=== PATIENT | female | born 1955 | race Caucasian/White ===

== ENCOUNTER 2017-02-20 13:05 | Inpatient (IN) | payer OTHER, MEDICARE ==
[2017-02-20] MEDS ORDERED: Morphine 4 MG/ML VIAL ONE (14:00)
[2017-02-20] MEDS ORDERED: Ondansetron HCl/PF 4 MG/2 ML Vial ONE (14:00)
[2017-02-20 14:35] LABS: #Eosinphils 0.1 thou/uL (0.0-0.7); #Lymphocytes 1.1 thou/uL (1.20-3.40); #Monocytes 0.3 thou/uL (0.11-0.59); #Neutrophils 0.8 thou/uL (1.40-6.50); %Basophils 0.8 % (0.0-1.0); %Eosinophils 2.2 % (0.0-10.0); %Monocytes 12.6 % (0.0-10.0); Hematocrit 35.8 % (36.0-47.0); Mean Platelet Volume 6.7 fL (7.4-10.4); Red Blood Cell (RBC) Count 3.31 mill/uL (4.20-5.40); White Blood Cell (WBC) Count 2.3 thou/uL (4.8-10.8)
[2017-02-20 14:55] LABS: Macrocytosis SLIGHT = 6-15 cells (100X) (0-5/hpf); Polychromasia SLIGHT = 2-3 cells (100X) (0-2/hpf)
[2017-02-20 14:59] LABS: Troponin I Less than 0.010 ng/mL (< 0.028)
[2017-02-20 15:02] LABS: ALT (SGPT) Less than 7 U/L (8-55); AST (SGOT) 8 U/L (5-34); Alkaline Phosphatase 108 U/L (40-150); Anion Gap 16 mmol/L (10-20); BUN (Urea Nitrogen) 21 mg/dL (9.8-20.1); Bilirubin, Total 0.3 mg/dL (0.2-1.2); Calc. Creatinine Clearance 0 mL/min (70-130); Calcium 9.4 mg/dL (7.8-10.44); Carbon Dioxide 21 mmol/L (22-29); Chloride 105 mmol/L (98-107); Estimated GFR-MDRD Greater than 90; Globulin 3.1 g/dL (2.4-3.5); Protein, Total 6.5 g/dL (6.0-8.3)
[2017-02-20 15:13] LABS: Bilirubin Moderate (Negative); Blood, Urine Moderate (Negative); Glucose, Urine (Dipstick) Negative (Negative); Ketone, Urine 40 mg/dL (Negative); Nitrite Negative (Negative); Protein, Urine (Dipstick) 100 mg/dL (Neg-Trace)
--- NOTE | 2017-02-20 15:20 | RAD ---
PORTABLE CHEST ONE VIEW: 02/20/2017 2:39 p.m. HISTORY: Cough. COMPARISON: 11/05/2016 FINDINGS: The heart size is normal. The lungs are well expanded without focal areas of consolidation, pneumoth orax, or pleural effusions. There are degenerative changes in the acromioclavicular joints. IMPRESSION: No acute process. POS: [facility]
[2017-02-20 15:36] LABS: Bacteria/HPF 4+ HPF (None Seen); Hyaline Casts/LPF NONE SEEN LPF (0-3 Hyaline); Squamous Epithelial 0-3 HPF (0-3); WBC/HPF 21-50 HPF (0-3)
[2017-02-20] MEDS ORDERED: HYDROcodone/Acetaminophen 5/325 mg Tablet ONE (15:43)
[2017-02-20] MEDS: Ketorolac Tromethamine 30 MG/ML VIAL IVP PRN (19:41)
[2017-02-20] MEDS ORDERED: cloNIDine 0.1 MG TAB PO PRN (20:25)
[2017-02-20] MEDS ORDERED: Morphine 4 MG/ML VIAL SLOW IVP PRN (20:29)
[2017-02-20] MEDS ORDERED: Amlodipine 10 MG TAB PO SCH (20:30)
[2017-02-20] MEDS ORDERED: Lisinopril 20 MG TAB PO SCH (20:30)
[2017-02-20] MEDS: Gabapentin 300 MG CAP PO SCH (21:10)
[2017-02-20] MEDS: Baclofen 10 MG TAB PO SCH (21:10)
[2017-02-20] MEDS: Dextrose 5 %-0.45 % NaCl 1,000 ML IV SCH (21:11)
[2017-02-21] MEDS: Ketorolac Tromethamine 30 MG/ML VIAL IVP PRN ×3 (03:09→18:48)
[2017-02-21 03:33] VITALS: BMI 27.3
[2017-02-21] MEDS: Lisinopril 20 MG TAB PO SCH (10:07)
[2017-02-21] MEDS: Dextrose 5 %-0.45 % NaCl 1,000 ML IV SCH ×2 (10:09→21:02)
[2017-02-21] MEDS: Gabapentin 300 MG CAP PO SCH ×2 (10:09→21:04)
[2017-02-21] MEDS: Amlodipine 10 MG TAB PO SCH (10:09)
[2017-02-21] MEDS: Baclofen 10 MG TAB PO SCH ×3 (10:10→21:04)
[2017-02-21] MEDS: cefTRIAXone\\ROCEPHIN 2 GM, Admixture Fee 1 EACH in Sodium Chloride 0.9% 100 ML IVPB SCH (10:14)
--- NOTE | 2017-02-21 11:22 | HP ---
REASON FOR ADMISSION/CHIEF COMPLAINT: Weakness and pain. HISTORY OF PRESENT ILLNESS: Ms. Dias is a 61-year-old female with past medical history of advanced multiple sclerosis, hypertension, and wheelchair bound, came because of increasing pain in the legs as well as increased weakness. The patient does not ambulate at home and needs a lot of help in transferring. Her multiple sclerosis is getting worse. She is on medications and followed by the multiple sclerosis specialist in [place]. She says the leg pain has been getting worse. She is taking medications, but nothing is giving any relief. Also feeling weak and malaise and some coughing as well and unable to sleep in the night because of this pain and not feeling well. The patient also had decreased appetite for the last few days, but no fever, no dysphagia. No nausea or vomiting. No diarrhea. Her brought her to the hospital. She was evaluated and found to be mildly dehydrated, but she had evidence of urinary tract infection, so she was started on IV fluids and started on Rocephin and admitted for further evaluation and management. PAST MEDICAL HISTORY: 1. Hypertension. 2. Advanced multiple sclerosis. 3. Hyperlipidemia. PAST SURGICAL HISTORY: Status post open reduction and internal fixation for tibial plateau fracture. CURRENT MEDICATIONS: Norvasc 10 mg daily, baclofen 20 mg t.i.d., Neurontin 300 mg b.i.d., lisinopril 40 mg daily, aspirin 325 mg daily, also takes Paxil 20 mg daily, Pravachol 40 mg daily, Lasix 20 mg daily, also on her multiple sclerosis medication which is not clear at this point. ALLERGIES: IODINE and SULFA. FAMILY HISTORY: Nothing of interest. SOCIAL HISTORY: Patient lives with her . She has a long smoking history. No history of alcohol intake. REVIEW OF SYSTEMS: CARDIOVASCULAR: No chest pain. No shortness of breath. RESPIRATORY: Cough. No fever. GASTROINTESTINAL: No nausea. No abdominal pain. GENITOURINARY: No dysuria. PORT DRIER: No headache, no dizziness. PHYSICAL EXAMINATION: GENERAL: The patient is alert, awake, oriented x3. VITAL SIGNS: Temperature 98, pulse 88, respirations 20, blood pressure 170/70. HEENT: Head is normocephalic, atraumatic. Pupils equal and reactive to light. Nasopharynx is pale and dry. Hard and soft palate, no lesions seen. SKIN: Skin turgor decreased. NECK: Supple. No JVD. LUNGS: Bilateral air entry present, no rales, no rhonchi. CARDIAC: S1, S2 regular. ABDOMEN: Soft, no distention, no tenderness. Normal bowel sounds. RECTAL EXAM: Deferred. EXTREMITIES: No edema. NEUROLOGIC: The patient is alert, awake, oriented x3. Motor system power 2/5 in both lower extremities and 4/5 in both upper extremities. Deep tendon reflexes 2+ bilaterally. Plantar downgoing. Sensory intact. LABORATORY AND X-RAY FINDINGS: CBC shows WBC 2.3, hemoglobin 11.8, hematocrit 35.8, platelets 229. Metabolic panel; sodium 138, potassium 4, chloride 105, CO2 21, BUN 21, creatinine 0.6, glucose 103. Urinalysis revealed WBC 21-50, bacteria 4+, RBC 11-20, nitrite negative. ASSESSMENT: 1. Urinary tract infection. 2. Dehydration. 3. Advanced multiple sclerosis. 4. Hypertension, uncontrolled. 5. Hyperlipidemia. 6. Intractable leg pain. 7. Encephalopathy,metabolic PLAN: 1. Vital signs q.4 hours. 2. Activity: As tolerated. 3. Allergies: SULFA and IODINE. 4. IV fluids 1/2 normal at 80 mL per hour. 5. Rocephin 2 grams IV piggyback daily. 6. Toradol 30 mg IV piggyback q.6 hours. 7. Morphine sulfate 4 mg IVP q.4h. p.r.n. 8. Continue home medications. MTDD
[2017-02-22] MEDS: Ketorolac Tromethamine 30 MG/ML VIAL IVP PRN ×3 (09:01→20:45)
[2017-02-22] MEDS: Gabapentin 300 MG CAP PO SCH ×2 (09:03→20:44)
[2017-02-22] MEDS: Baclofen 10 MG TAB PO SCH ×3 (09:03→20:44)
[2017-02-22] MEDS: cefTRIAXone\\ROCEPHIN 2 GM, Admixture Fee 1 EACH in Sodium Chloride 0.9% 100 ML IVPB SCH (09:03)
[2017-02-22] MEDS: Lisinopril 20 MG TAB PO SCH (09:03)
[2017-02-22] MEDS: Amlodipine 10 MG TAB PO SCH (09:03)
[2017-02-22] MEDS: Dextrose 5 %-0.45 % NaCl 1,000 ML IV SCH ×2 (09:04→21:32)
[2017-02-22] MEDS: Diazepam 10 MG/2 ML SYRINGE IVP PRN ×2 (15:20→21:32)
[2017-02-23] MEDS: Gabapentin 300 MG CAP PO SCH ×2 (09:04→19:55)
[2017-02-23] MEDS: Amlodipine 10 MG TAB PO SCH (09:05)
[2017-02-23] MEDS: Lisinopril 20 MG TAB PO SCH (09:05)
[2017-02-23] MEDS: Ketorolac Tromethamine 30 MG/ML VIAL IVP PRN ×2 (09:06→18:19)
[2017-02-23] MEDS: cefTRIAXone\\ROCEPHIN 2 GM, Admixture Fee 1 EACH in Sodium Chloride 0.9% 100 ML IVPB SCH (09:16)
[2017-02-23] MEDS: Baclofen 10 MG TAB PO SCH ×3 (09:58→19:55)
[2017-02-23] MEDS: Dextrose 5 %-0.45 % NaCl 1,000 ML IV SCH (10:44)
[2017-02-23] MEDS ORDERED: Diazepam 5 MG TAB PO SCH (15:30)
[2017-02-23] MEDS: Diazepam 5 MG TAB PO SCH (19:55)
[2017-02-24] MEDS: Ketorolac Tromethamine 30 MG/ML VIAL IVP PRN ×3 (00:02→22:11)
[2017-02-24] MEDS: Dextrose 5 %-0.45 % NaCl 1,000 ML IV SCH ×3 (00:03→13:44)
[2017-02-24] MEDS ORDERED: traMADol HCl 50 MG TAB PO SCH (04:15)
[2017-02-24] MEDS: Diazepam 5 MG TAB PO SCH (07:46)
[2017-02-24] MEDS: Lisinopril 20 MG TAB PO SCH (07:51)
[2017-02-24] MEDS: Amlodipine 10 MG TAB PO SCH (07:51)
[2017-02-24] MEDS: Baclofen 10 MG TAB PO SCH ×3 (07:51→19:57)
[2017-02-24] MEDS: Gabapentin 300 MG CAP PO SCH ×2 (07:51→19:57)
[2017-02-24] MEDS: cefTRIAXone\\ROCEPHIN 2 GM, Admixture Fee 1 EACH in Sodium Chloride 0.9% 100 ML IVPB SCH ×2 (07:52→09:38)
[2017-02-24] MEDS: Diazepam 2 MG TAB PO SCH (19:57)
[2017-02-25] MEDS: Dextrose 5 %-0.45 % NaCl 1,000 ML IV SCH ×2 (02:50→16:28)
[2017-02-25] MEDS: cefTRIAXone\\ROCEPHIN 2 GM, Admixture Fee 1 EACH in Sodium Chloride 0.9% 100 ML IVPB SCH (08:55)
[2017-02-25] MEDS: Gabapentin 300 MG CAP PO SCH ×2 (08:57→21:42)
[2017-02-25] MEDS: Lisinopril 20 MG TAB PO SCH (08:57)
[2017-02-25] MEDS: Diazepam 2 MG TAB PO SCH ×2 (08:57→21:42)
[2017-02-25] MEDS: Baclofen 10 MG TAB PO SCH ×3 (08:57→21:41)
[2017-02-25] MEDS: Amlodipine 10 MG TAB PO SCH (08:57)
[2017-02-25] MEDS: Ketorolac Tromethamine 30 MG/ML VIAL IVP PRN (09:07)
[2017-02-26 04:36] LABS: #Eosinphils 0.2 thou/uL (0.0-0.7); #Lymphocytes 1.8 thou/uL (1.20-3.40); #Monocytes 0.4 thou/uL (0.11-0.59); #Neutrophils 2.7 thou/uL (1.40-6.50); %Basophils 0.6 % (0.0-1.0); %Eosinophils 3.8 % (0.0-10.0); %Lymphocytes 34.2 % (21.0-51.0); %Monocytes 8.3 % (0.0-10.0); Hematocrit 35.6 % (36.0-47.0); Mean Platelet Volume 6.5 fL (7.4-10.4); Red Blood Cell (RBC) Count 3.26 mill/uL (4.20-5.40); White Blood Cell (WBC) Count 5.1 thou/uL (4.8-10.8)
[2017-02-26 04:47] LABS: Anion Gap 10 mmol/L (10-20); BUN (Urea Nitrogen) 13 mg/dL (9.8-20.1); Calc. Creatinine Clearance 123 mL/min (70-130); Calcium 9.2 mg/dL (7.8-10.44); Carbon Dioxide 27 mmol/L (22-29); Chloride 107 mmol/L (98-107); Estimated GFR-MDRD Greater than 90
[2017-02-26] MEDS: Baclofen 10 MG TAB PO SCH ×3 (08:38→20:51)
[2017-02-26] MEDS: Diazepam 2 MG TAB PO SCH ×2 (08:38→20:52)
[2017-02-26] MEDS: Lisinopril 20 MG TAB PO SCH (08:39)
[2017-02-26] MEDS: Gabapentin 300 MG CAP PO SCH ×2 (08:39→20:51)
[2017-02-26] MEDS: Amlodipine 10 MG TAB PO SCH (08:40)
[2017-02-26] MEDS: cefTRIAXone\\ROCEPHIN 2 GM, Admixture Fee 1 EACH in Sodium Chloride 0.9% 100 ML IVPB SCH ×2 (08:40→15:42)
[2017-02-26] MEDS ORDERED: hydrALAZINE 25 MG TAB PO SCH (17:45)
[2017-02-26] MEDS: hydrALAZINE 25 MG TAB PO SCH (20:52)
[2017-02-26] MEDS: Naproxen 500 MG TAB PO SCH (21:12)
[2017-02-27] MEDS: Lisinopril 20 MG TAB PO SCH (07:43)
[2017-02-27] MEDS: Naproxen 500 MG TAB PO SCH (07:43)
[2017-02-27] MEDS: Baclofen 10 MG TAB PO SCH ×2 (07:44→14:38)
[2017-02-27] MEDS: hydrALAZINE 25 MG TAB PO SCH (07:44)
[2017-02-27] MEDS: Gabapentin 300 MG CAP PO SCH (07:44)
[2017-02-27] MEDS: Diazepam 2 MG TAB PO SCH (07:45)
[2017-02-27] MEDS: Amlodipine 10 MG TAB PO SCH (07:45)
[2017-02-27 16:10] VITALS: BP 133/73; TEMP 97.7
== END 2017-02-27 18:24 | disposition home health service (06) | DRG 689 ==
LOC: ERS 13:05 → T4-A 17:34
PROVIDERS: ADMIT Internal Medicine; ATTEND Internal Medicine
DX: N39.0 Urinary tract infection, site not specified (principal); G93.41 Metabolic encephalopathy; G35 Multiple sclerosis; I10 Essential (primary) hypertension; E78.5 Hyperlipidemia, unspecified; Z87.891 Personal history of nicotine dependence; E86.0 Dehydration
CPT/HCPCS: 36415; 51701; 71010; 80048; 80053; 81003; 81015; 82553; 84484; 85025; 93005; 94760; 96361; 96374; 96375; A4216; A4353; J0696; J1885; J2270; J2405; J3360; J7050

== ENCOUNTER 2018-03-03 09:29 | Day surgery (SDC) | payer MEDICARE ==
[2018-02-26 14:17] VITALS: BMI 35.0
[2018-03-03] MEDS ORDERED: Levofloxacin 500 mg/D5W 100 ml Premix Bag ONE (10:37)
[2018-03-03 11:00] LABS: #Eosinphils 0.2 thou/uL (0.0-0.7); #Lymphocytes 2.1 thou/uL (1.20-3.40); #Monocytes 0.4 thou/uL (0.11-0.59); #Neutrophils 4.1 thou/uL (1.40-6.50); %Basophils 0.1 % (0.0-1.0); %Eosinophils 3.1 % (0.0-10.0); %Lymphocytes 30.7 % (21.0-51.0); %Monocytes 5.6 % (0.0-10.0); %Neutrophils 60.5 % (42.0-75.0); Mean Corpuscular HGB CONC 32.8 g/dL (32.0-36.0); Mean Corpuscular Hemoglobin 34.6 pg (27.0-31.0); Mean Platelet Volume 7.2 fL (7.4-10.4); Platelet Count 256 thou/uL (130-400); RBC Distribution Width 12.4 % (11.5-14.5); Red Blood Cell (RBC) Count 3.75 mill/uL (4.20-5.40); White Blood Cell (WBC) Count 6.7 thou/uL (4.8-10.8)
[2018-03-03 11:05] LABS: Prothrombin Time 13.2 SEC (12.0-14.7)
[2018-03-03 11:22] LABS: Anion Gap 13 mmol/L (10-20); BUN (Urea Nitrogen) 25 mg/dL (9.8-20.1); Calc. Creatinine Clearance 110 mL/min (70-130); Carbon Dioxide 25 mmol/L (23-31); Chloride 104 mmol/L (98-107); Estimated GFR-MDRD 77; Glucose 81 mg/dL (80-115); Potassium 4.8 mmol/L (3.5-5.1); Sodium 137 mmol/L (136-145)
[2018-03-03] MEDS ORDERED: Bupivacaine HCl 0.5%/Epinephrine 1:200,000/PF 30 ml Vial ONE (11:33)
[2018-03-03] MEDS ORDERED: Bupivacaine/Epinephrine 0.25% 30 ML VIAL ONE (11:33)
[2018-03-03] MEDS ORDERED: Fentanyl 100 MCG/2 ML VIAL ONE (11:43)
--- NOTE | 2018-03-03 12:50 | OP ---
DATE OF PROCEDURE: 03/03/2018 PREOPERATIVE DIAGNOSIS: Neurogenic bladder (areflexic). POSTOPERATIVE DIAGNOSIS: Neurogenic bladder (areflexic). PROCEDURE PERFORMED: Cystoscopy and suprapubic tube placement Daryl technique. SURGEON: Dr. Nicolas Ribeiro. ANESTHESIA: General with local. ESTIMATED BLOOD LOSS: Minimal. FINDINGS: There was no evidence of urethral stenosis or lesion. The bladder had a couple of very ti ny little calcifications a couple millimeters in size each. Had 1-2+ trabeculation, else was negativ e. DRAINS PLACED: A 22-[place] Voss with 30 mL in the balloon for suprapubic tube and urethral catheter was not left in. OPERATIVE TECHNIQUE: After obtaining written and verbal consent from the patient, after receiving IV antibiotics she was taken the operating suite. She was placed in the supine position on the treatme nt table. PlexiPulses were placed on her lower extremities and turned on. She was given a general a nesthetic, oral obturator intubation. She was placed in the dorsal lithotomy position and sterilely prepped and draped for the above procedure. She underwent cystoscopy with a 22-[place] sheath. This was well lubricated and passed under direct vision through the female urethra and into the urinary bl adder with aid of a 30-degree lens and video camera and monitor. The bladder was filled and emptied a number of times, it was examined with both 30 and the 70 degree lens. Then again using the 30 degr ee lens we filled up the bladder at about 70 cm of water pressure until it was palpably distended and we came in about two fingerbreadths above the pubic symphysis with a small spinal needle and watched it enter the bladder at the level of the air bubble. We then infiltrated the suprapubic region with 2% Xylocaine without epinephrine. We then removed the cystoscope, placed a Lowsley retractor and cu t down on the Lowsley as we pressed up from below to bring it up through this site. Once it exited t he skin, we used an 0 silk to guide a suprapubic tube with the Lowsley's direction into the bladder, inflated the balloon under direct vision and cutting all stitches free. It was irrigating and draini ng easily. There was no bleeding, so a ureteral catheter was not placed, 2-0 silk was used to secure the catheter at the skin site. A dressing was placed. She was taken out of dorsal lithotomy positi on, awakened, extubated, and taken by stretcher to the recovery room.
[2018-03-03] MEDS ORDERED: Ondansetron PF 4 MG/2 ML Vial ONE (13:47)
[2018-03-03] MEDS ORDERED: Lidocaine 1% PF 5 ML VIAL ONE (13:47)
[2018-03-03] MEDS ORDERED: Glycopyrrolate 0.2 MG/ML 5 ML SYRINGE ONE (13:47)
[2018-03-03] MEDS ORDERED: PROPOFOL 200 MG/20 ML VIAL ONE (13:47)
[2018-03-03] MEDS ORDERED: PHENYLEPHRINE-NS 100 MCG/ML 10 ML SYRINGE ONE (13:47)
== END 2018-03-03 16:53 | disposition home or self-care (01) ==
LOC: SDC 09:29
PROVIDERS: ATTEND Urology
PROC: 0T9B30Z Drainage of Bladder with Drainage Device, Percutaneous Approach (ICD-10-PCS; principal; 2018-03-03)
DX: N31.2 Flaccid neuropathic bladder, not elsewhere classified (principal); I10 Essential (primary) hypertension; Z79.1 Long term (current) use of non-steroidal anti-inflammatories (NSAID); Z79.82 Long term (current) use of aspirin; Z79.899 Other long term (current) drug therapy; Z88.2 Allergy status to sulfonamides; Z88.5 Allergy status to narcotic agent; Z91.041 Radiographic dye allergy status; Z91.013 Allergy to seafood
CPT/HCPCS: 51102; 80048; 85025; 85610; C1758; 36415; J0670; J1956; J2001; J2405; J2704; J3010

== ENCOUNTER 2018-04-27 12:54 | Emergency (ER) | payer MEDICARE ==
[2018-04-27 13:52] LABS: #Eosinphils 0.2 thou/uL (0.0-0.7); #Lymphocytes 1.6 thou/uL (1.20-3.40); #Monocytes 0.3 thou/uL (0.11-0.59); %Basophils 0.1 % (0.0-1.0); %Eosinophils 3.3 % (0.0-10.0); %Lymphocytes 30.9 % (21.0-51.0); %Monocytes 6.4 % (0.0-10.0); %Neutrophils 59.3 % (42.0-75.0); Hemoglobin 13.2 g/dL (12.0-16.0); Mean Corpuscular HGB CONC 32.3 g/dL (32.0-36.0); Mean Corpuscular Hemoglobin 32.5 pg (27.0-31.0); Mean Platelet Volume 7.3 fL (7.4-10.4); Platelet Count 253 thou/uL (130-400); RBC Distribution Width 12.9 % (11.5-14.5); Red Blood Cell (RBC) Count 4.07 mill/uL (4.20-5.40)
[2018-04-27 14:13] LABS: ALT (SGPT) 7 U/L (8-55); AST (SGOT) 9 U/L (5-34); Albumin 3.8 g/dL (3.4-4.8); Alkaline Phosphatase 148 U/L (40-150); Anion Gap 19 mmol/L (10-20); BUN (Urea Nitrogen) 26 mg/dL (9.8-20.1); Bilirubin, Total 0.3 mg/dL (0.2-1.2); Calc. Creatinine Clearance 0 mL/min (70-130); Calcium 10.6 mg/dL (7.8-10.44); Carbon Dioxide 23 mmol/L (23-31); Chloride 99 mmol/L (98-107); Estimated GFR-MDRD 75; Globulin 3.9 g/dL (2.4-3.5); Glucose 81 mg/dL (80-115); Lipase 11 U/L (8-78); Potassium 4.3 mmol/L (3.5-5.1); Protein, Total 7.7 g/dL (6.0-8.3); Sodium 137 mmol/L (136-145)
[2018-04-27] MEDS ORDERED: Fentanyl 100 MCG/2 ML VIAL ONE (14:24)
[2018-04-27 14:36] LABS: Bilirubin Negative (Negative); Blood, Urine Trace (Negative); Clarity CLEAR (Clear); Glucose, Urine (Dipstick) Negative (Negative); Leukocyte Trace (Negative); Nitrite Negative (Negative); Protein, Urine (Dipstick) Negative (Neg-Trace); Urobilinogen 0.2 mg/dL (0.2-1.0)
[2018-04-27 14:38] LABS: Bacteria/HPF None Seen HPF (None Seen); Hyaline Casts/LPF 0-3 HYALINE CAST LPF (0-3 Hyaline); Pathc Cast-AUWi Flag 0.72 (0-2.49); RBC/HPF 0-3 HPF (0-3)
--- NOTE | 2018-04-27 15:09 | CT ---
CT ABDOMEN AND PELVIS: Date: 04/27/18 PROVIDED CLINICAL HISTORY: Abdominal pain. FINDINGS: Comparison with 06/13/12. The visualized lung bases are free of significant opacity. There is an atrophic right kidney, which is a new finding with respect to the prior study. Apparent u rothelial thickening involving the right renal pelvis and proximal right ureter, incompletely charact erized on the basis of this study. No evidence for urinary tract calculi. The solid abdominal organs are suboptimally evaluated in the absence of IV contrast material, but demonstrate an otherwise unrem arkable unenhanced CT appearance. There is conspicuous rectal fecal retention with stranding of the perirectal fat. A suprapubic cathet er is noted within the urinary bladder. There is moderate colonic fecal retention. There is no evidence for small bowel obstruction. There is no free fluid, additional inflammatory fat stranding, or free air apparent. Vascular calcifications are seen. The osseous structures demonstrate no concerning lytic or blastic lesions. IMPRESSION: 1. Conspicuous rectal fecal retention with stranding changes of the perirectal fat suspicious for st ercoral proctitis. 2. Atrophic appearance to the right kidney, a new finding with respect to the prior CT examination. The etiology and significance of this finding is not certain. Incompletely characterized urothelial t hickening involving the right kidney. Consider nonemergent urology consultation. POS: [facility]
--- NOTE | 2018-05-04 00:04 | EKG ---
Test Reason : Blood Pressure : / mmHG Vent. Rate : 072 BPM Atrial Rate : 072 BPM P-R Int : 146 ms QRS Dur : 084 ms QT Int : 386 ms P-R-T Axes : 000 110 121 degrees QTc Int : 422 ms Normal sinus rhythm Lateral infarct , age undetermined Abnormal ECG Confirmed by DEVI GARDINER, ELA ([id number]), visual effects editor JOBY DANIELSON ([id number]) on 05/04/2018 12:03:52 AM Referred By: Confirmed By:ELA QUINONEZ MD
== END 2018-04-27 15:45 | disposition home or self-care (01) ==
LOC: ERS 12:54
DX: K56.41 Fecal impaction (principal); E78.5 Hyperlipidemia, unspecified; I10 Essential (primary) hypertension; F17.210 Nicotine dependence, cigarettes, uncomplicated; Z79.899 Other long term (current) drug therapy; Z79.82 Long term (current) use of aspirin
CPT/HCPCS: 36415; 74176; 80053; 81003; 81015; 83690; 84484; 85025; 87086; 93005; 96361; 96374; J3010

== ENCOUNTER 2018-05-29 11:01 | Emergency (ER) | payer MEDICARE ==
--- NOTE | 2018-05-29 12:28 | RAD ---
ABDOMEN ONE VIEW: History: Constipation. Unable to have a bowel movement, x 3 weeks. FINDINGS: Nonspecific bowel gas pattern. No densities in the abdomen or pelvis. No evidence of pneumoperitoneum on supine projection. IMPRESSION: Nonspecific bowel gas pattern. POS: [facility]
[2018-05-29] MEDS ORDERED: Bisacodyl 10 MG SUPP ONE (12:52)
== END 2018-05-29 13:47 | disposition home or self-care (01) ==
LOC: ERS 11:01
DX: K59.00 Constipation, unspecified (principal); E78.5 Hyperlipidemia, unspecified; I10 Essential (primary) hypertension; F17.210 Nicotine dependence, cigarettes, uncomplicated; Z79.899 Other long term (current) drug therapy; Z79.82 Long term (current) use of aspirin
CPT/HCPCS: 74018

== ENCOUNTER 2018-07-20 12:16 | Emergency (ER) | payer MEDICARE ==
[2018-07-20 15:18] LABS: Bilirubin Negative (Negative); Blood, Urine Large (Negative); Clarity TURBID (Clear); Glucose, Urine (Dipstick) Negative (Negative); Leukocyte Large (Negative); Nitrite Negative (Negative); Protein, Urine (Dipstick) 100 mg/dL (Neg-Trace); Specific Gravity, Urine 1.013 (1.002-1.036); pH, Urine 8.5 (5.0-9.0)
[2018-07-20 15:20] LABS: Bacteria/HPF 1+ HPF (None Seen); Pathc Cast-AUWi Flag 1.71 (0-2.49); RBC/HPF GREATER THAN 50-TNTC HPF (0-3)
[2018-07-20 15:39] LABS: Crystals/HPF 1+ TRIPLE PHOS HPF (Negative); Hyaline Casts/LPF 0-3 HYALINE CAST LPF (0-3 Hyaline); Renal Epithelial None Seen HPF (0-3); Transitional Epithelial NONE SEEN HPF (0-3)
== END 2018-07-20 16:23 | disposition home or self-care (01) ==
LOC: ERS 12:16
DX: T83.018A Breakdown (mechanical) of other urinary catheter, initial encounter (principal); E78.5 Hyperlipidemia, unspecified; I10 Essential (primary) hypertension; F17.210 Nicotine dependence, cigarettes, uncomplicated; Z79.899 Other long term (current) drug therapy; Z79.82 Long term (current) use of aspirin
CPT/HCPCS: 51705; 81003; 81015; 87086

== ENCOUNTER 2019-01-26 08:31 | Outpatient (CLI) | payer MEDICARE ==
[2019-01-26 10:25] LABS: Estimated GFR-MDRD - POC Greater than 90
--- NOTE | 2019-01-26 15:24 | MRI ---
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 COMPARISON: None. FINDINGS: Vitamin E tablet was placed over the left neck at the site of palpable concern. There is no discrete solid or cystic mass, fatty or otherwise, anywhere in the neck, including deep to the external marker . There is abundant fat homogeneously distributed throughout the neck. Other than that, no major path ology is identified involving the submandibular, parotid, parapharyngeal, perivertebral, retropharyng eal, assistant golf course superintendent, and posterior cervical, spaces. There are bilateral mastoid effusions, incompletely imaged. No gross abnormality of the larynx. Thyroid gland is incompletely imaged. There is a well-cir cumscribed 2.5 x 1.5 x 1.0 cm structure in the region of the right lobe of the thyroid gland, which i s hyperintense on both T1 WI and T2 WI, and does not lose signal on the fat suppressed images. This i s incompletely imaged. It is probably arising from the upper pole of the right lobe of the thyroid gl and. No major bone marrow signal abnormality. No cervical lymphadenopathy. No evidence of neoplastic tumor involving the carotid space. IMPRESSION: 1. No solid or cystic mass, or lipoma. 2. Homogeneously distributed abundant adipose tissues throughout the neck and shoulders. 3. Nonspecific right thyroid nodule, probably benign. 4. Bilateral mastoid effusions. POS: [facility]
== END 2019-01-26 08:32 | disposition home or self-care (01) ==
LOC: MRI 08:31
PROVIDERS: ATTEND Specialist
DX: D17.0 Benign lipomatous neoplasm of skin and subcutaneous tissue of head, face and neck (principal); E04.1 Nontoxic single thyroid nodule; H74.8X3 Other specified disorders of middle ear and mastoid, bilateral
CPT/HCPCS: 70543; 82565

== ENCOUNTER 2019-02-13 15:21 | Emergency (ER) | payer MEDICARE ==
--- NOTE | 2019-02-13 16:27 | CT ---
CT Brain WO Con HISTORY: Altered mental status. Slurred speech. History of multiple sclerosis. COMPARISON: 06/13/2012 study. FINDINGS: There is mild ventricular and sulcal prominence. There is decreased attenuation to the mauro ventricular white matter consistent with chronic white matter change. Old right sided lacunar infarcts are seen. There are no signs of intracerebral hemorrhage or extra-axial fluid collections. T he mastoid air cells and visualized sinuses are clear. IMPRESSION: No acute intracranial abnormalities.
--- NOTE | 2019-02-13 16:44 | RAD ---
FRONTAL VIEW CHEST: 02/13/19 COMPARISON: 02/20/17. INDICATION: Hypotension. FINDINGS: The patient is rotated limiting assessment. There is accentuation of the cardiac silhouette. No lobar consolidation visualized. No evidence of effusion or discrete pneumothorax within limitations. Leads overlie chest bilaterally which obscure detail. IMPRESSION: Technically limited exam, without evidence of focal consolidation. POS: [facility]
[2019-02-13 17:09] LABS: #Eosinphils 0.2 thou/uL (0.0-0.7); #Lymphocytes 1.9 thou/uL (1.20-3.40); #Monocytes 0.5 thou/uL (0.11-0.59); #Neutrophils 3.3 thou/uL (1.40-6.50); %Basophils 0.6 % (0.0-1.0); %Eosinophils 2.7 % (0.0-10.0); %Lymphocytes 31.8 % (21.0-51.0); %Monocytes 8.2 % (0.0-10.0); %Neutrophils 56.8 % (42.0-75.0)
[2019-02-13 17:10] LABS: Hemoglobin 12.5 g/dL (12.0-16.0); Mean Corpuscular HGB CONC 32.9 g/dL (32.0-36.0); Mean Corpuscular Hemoglobin 36.3 pg (27.0-31.0); Mean Platelet Volume 7.1 fL (7.4-10.4); Platelet Count 225 thou/uL (130-400); Red Blood Cell (RBC) Count 3.44 mill/uL (4.20-5.40); White Blood Cell (WBC) Count 5.8 thou/uL (4.8-10.8)
[2019-02-13 17:24] LABS: MDiff Complete? YES; Macrocytosis MODERATE=16-30 cells (100X) (0-5/hpf); Platelet Morphology Comment Appears Adequate; Polychromasia SLIGHT = 2-3 cells (100X) (0-2/hpf)
[2019-02-13 17:31] LABS: ALT (SGPT) 15 U/L (8-55); AST (SGOT) 14 U/L (5-34); Albumin 3.8 g/dL (3.4-4.8); Alkaline Phosphatase 125 U/L (40-110); Anion Gap 15 mmol/L (10-20); BUN (Urea Nitrogen) 25 mg/dL (9.8-20.1); Bilirubin, Total 0.2 mg/dL (0.2-1.2); CK (CPK) 52 U/L (29-168); Calc. Creatinine Clearance 0 mL/min (70-130); Calcium 9.4 mg/dL (7.8-10.44); Carbon Dioxide 25 mmol/L (23-31); Chloride 107 mmol/L (98-107); Estimated GFR-MDRD 86; Globulin 2.6 g/dL (2.4-3.5); Glucose 108 mg/dL (80-115); Lipase 46 U/L (8-78); Potassium 4.7 mmol/L (3.5-5.1); Protein, Total 6.4 g/dL (6.0-8.3); Sodium 142 mmol/L (136-145)
[2019-02-13 17:44] LABS: Bilirubin Negative (Negative); Blood, Urine 2+ (Negative); Clarity Turbid (Clear); Glucose, Urine (Dipstick) Normal (Negative); Leukocyte 500 Leu/uL (Negative); Nitrite Negative (Negative); Protein, Urine (Dipstick) 100 mg/dL (Neg-Trace); RBC/HPF 21-50 HPF (0-3); Squamous Epithelial 0-3 HPF (0-3); Urobilinogen 3 mg/dL (Less than 2); WBC/HPF Greater than 50 HPF (0-3)
[2019-02-13 17:45] LABS: Unclassified Crystals 1+ HPF (None Seen)
[2019-02-13 17:54] LABS: Bacteria/HPF 4+ HPF (None Seen)
[2019-02-13] MEDS ORDERED: cefTRIAXone\\ROCEPHIN 2 GM VIAL ONE (18:10)
== END 2019-02-13 20:15 | disposition home or self-care (01) ==
LOC: ERS 15:21
DX: I95.9 Hypotension, unspecified (principal); N39.0 Urinary tract infection, site not specified; E78.5 Hyperlipidemia, unspecified; E78.00 Pure hypercholesterolemia, unspecified; I10 Essential (primary) hypertension; F17.210 Nicotine dependence, cigarettes, uncomplicated; Z79.899 Other long term (current) drug therapy; Z79.82 Long term (current) use of aspirin
CPT/HCPCS: 70450; 71045; 80053; 81003; 81015; 82533; 82550; 83605; 83690; 83880; 84443; 84484; 85025; 87040; 87086; 87804; 93005; 96361; 96365; 96366; J0696

== ENCOUNTER 2019-06-02 20:31 | Inpatient (IN) | payer MEDICARE ==
[2019-06-02] MEDS ORDERED: Naloxone HCl 0.4 mg/ml Vial ONE (20:47)
[2019-06-02 20:59] LABS: Actual Bicarbonate (HCO3a) 25.8 mEq/L (22-28); Analyzer IN Cardio ER; Base Excess (BEa) -1.3 mEq/L (-2.0 to +3.0); CO2 Tension 52.9 mmHg (35.0-45.0); Calcium, Ionized 1.18 mmol/L (1.12-1.30); Carboxyhemoglobin (COHb) 3.7 gm% (0.0-3.0); Hemoglobin (Hb) 13.8 g/dL (12.0-16.0); O2 Tension (PaO2) 89.4 mmHg (> 80.0); Potassium - ABG Lab 3.63 mmol/L (3.70-5.30); pH, Arterial 7.31 (7.35-7.45)
[2019-06-02 21:00] LABS: ALV-art Gradient 200.975 (0-20); Puncture Site RRA
[2019-06-02 21:44] LABS: #Eosinphils 0.1 thou/uL (0.0-0.7); #Lymphocytes 1.4 thou/uL (1.20-3.40); #Monocytes 0.3 thou/uL (0.11-0.59); #Neutrophils 6.7 thou/uL (1.40-6.50); %Basophils 0.3 % (0.0-1.0); %Eosinophils 1.1 % (0.0-10.0); %Lymphocytes 16.3 % (21.0-51.0); %Monocytes 3.3 % (0.0-10.0); %Neutrophils 78.9 % (42.0-75.0); Hemoglobin 13.7 g/dL (12.0-16.0); MDiff Complete? YES; Macrocytosis SLIGHT = 6-15 cells (100X) (0-5/hpf); Mean Corpuscular HGB CONC 32.7 g/dL (32.0-36.0); Mean Platelet Volume 7.9 fL (7.4-10.4); Platelet Count 116 thou/uL (130-400); Platelet Morphology Comment Appears Decreased; RBC Distribution Width 12.9 % (11.5-14.5); White Blood Cell (WBC) Count 8.5 thou/uL (4.8-10.8)
[2019-06-02 22:00] LABS: ALT (SGPT) 8 U/L (8-55); AST (SGOT) 12 U/L (5-34); Albumin 3.8 g/dL (3.4-4.8); Alkaline Phosphatase 120 U/L (40-110); Anion Gap 17 mmol/L (10-20); BUN (Urea Nitrogen) 28 mg/dL (9.8-20.1); Bilirubin, Total 0.4 mg/dL (0.2-1.2); CK (CPK) 37 U/L (29-168); Calc. Creatinine Clearance 0 mL/min (70-130); Calcium 9.6 mg/dL (7.8-10.44); Carbon Dioxide 23 mmol/L (23-31); Chloride 100 mmol/L (98-107); Estimated GFR-MDRD 42; Globulin 3.3 g/dL (2.4-3.5); Glucose 139 mg/dL (80-115); Protein, Total 7.1 g/dL (6.0-8.3); Sodium 136 mmol/L (136-145)
--- NOTE | 2019-06-02 22:04 | CT ---
Head CT without contrast 06/02/2019: COMPARISON: 02/13/2019 HISTORY: Dyspnea, altered mental status TECHNIQUE: Axial CT imaging at 5 mm intervals from vertex through skull base without contrast FINDINGS: There is extensive periventricular, deep, and subcortical white matter hypodensity, stable when compared to prior imaging, consistent with significant small vessel disease. The visualized paranasal sinuses and mastoid air cells are well-aerated. No displaced calvarial fracture, intracrani al hemorrhage, midline shift, or mass effect. IMPRESSION: Stable head CT as detailed above.
--- NOTE | 2019-06-02 22:09 | RAD ---
Portable frontal chest radiograph: 06/02/2019 COMPARISON: 02/13/2019 HISTORY: Shortness of breath FINDINGS: Stable increased linear interstitial density. Heart and mediastinal contours are stable. No pneumothorax, pleural fluid, focal consolidation, or alveolar edema. IMPRESSION: No acute findings.
[2019-06-02] MEDS ORDERED: Enoxaparin Sodium 80 MG/0.8 ML SYRINGE ONE (23:47)
[2019-06-02] MEDS ORDERED: methylPREDNISolone Sod Succ/PF 125 MG/2 ML VIAL ONE (23:47)
[2019-06-03] MEDS ORDERED: Sodium Chloride 0.9% (PF) 10 ML VIAL FS PRN (01:56)
[2019-06-03] MEDS ORDERED: Bacteriostatic Water 30 ML VIAL FS PRN (01:56)
[2019-06-03 02:13] VITALS: BMI 24.8
[2019-06-03 03:08] LABS: Troponin I 0.019 ng/mL (< 0.028)
--- NOTE | 2019-06-03 03:43 | HP ---
CHIEF COMPLAINT: Respiratory distress and unresponsiveness. HISTORY OF PRESENT ILLNESS: Ms. Dias is a 64-year-old female with past medical history of multiple sclerosis, hypertension, was noted to have respiratory problems. Per , when he came back from work, she was sleeping; an hour later, he saw her having lot of foam coming out of her mouth and she was not responding well; appeared to be in respiratory distress. He tried to clean the foam out of the mouth, but he felt she was not breathing well. She has not been sick in the last few days. She has been doing well. She did not have any fever, cough, nausea, or vomiting prior to this. The patient is usually bed bound and wheelchair bound, nonambulatory. She has a long history of multiple sclerosis, so the EMS was called. EMS found the patient with respiratory distress, not responding well. The patient was not intubated because she was DNR and was put on BiPAP and brought to the hospital. The patient was responding in the ER, able to open her eyes to the verbal commands. She was found to be hypoxic, so she was kept on BiPAP. Chest x-ray did not show any abnormalities. CT scan of the brain was unremarkable. Here, the patient wanted a CT angio of chest, but could not be done because the patient is allergic to contrast, so the patient is being admitted for further evaluation and management. Etiology of the respiratory failure is not clear at this point. PAST MEDICAL HISTORY: 1. Multiple sclerosis. 2. Hypertension. 3. Hyperlipidemia. 4. Chronic pain passively status post open reduction and internal fixation of tibial plateau fracture. CURRENT MEDICATIONS: The patient is on; 1. Gabapentin 300 mg b.i.d. 2. Lisinopril 40 mg daily. 3. Aspirin 325 mg daily. 4. Vitamin D 1000 units daily. 5. Paxil 20 mg daily. 6. Baclofen 20 mg t.i.d. 7. Diazepam 2 mg b.i.d. 8. Lasix 20 mg daily. 9. Pravastatin 40 mg daily. 10. Tramadol p.r.n. ALLERGIES: IODINE AND SULFA. FAMILY HISTORY: Nothing contributory. SOCIAL HISTORY: The patient lives with . She has a long smoking history. Smokes 1 pack a day. Smoked for many years. No history of alcohol intake. REVIEW OF SYSTEMS: Unable to obtain as the patient is still not very alert, not able to answer questions. PHYSICAL EXAMINATION: VITAL SIGNS: Temperature 97, respirations 20, blood pressure 120/75, pulse 85, O2 saturation 91% on CPAP. NECK: Supple. No JVD. LUNGS: Bilateral air entry present. Rhonchi present. HEART: S1, S2. Regular. ABDOMEN: Soft. No distention. No tenderness. Normal bowel sounds. RECTAL: Deferred. CENTRAL NERVOUS SYSTEM: Could not be examined. LABORATORY DATA: CBC shows WBC 8.5, hemoglobin 13, hematocrit 41, platelets 116. Metabolic panel: Sodium 136, potassium 4, chloride 100, CO2 of 23, BUN 28, creatinine 1.2, glucose 139. Chest x-ray unremarkable. CT scan of the brain unremarkable. ASSESSMENT: 1. Acute respiratory failure, probably due to hypoventilation. 2. Acute metabolic encephalopathy. 3. Advanced multiple sclerosis. 4. Hypertension. 5. Hyperlipidemia. 6. Chronic pain. 7. Tobacco abuse. PLAN: 1. Vital signs q.4 hours. 2. Activity as tolerated. 3. Allergies: Iodine contrast, sulfa. 4. Hep-Lock. 5. DuoNebs 1 unit q.i.d. 6. Solu-Medrol 20 IVP q.6 hours. 7. BiPAP. 8. Continue home medications. 9. We will obtain a V/Q scan, rule out pulmonary embolism. 10. The patient is a DNR. Job ID: [id number] MTDD
[2019-06-03] MEDS: methylPREDNISolone Sod Succ 40 MG VIAL IVP SCH ×3 (06:27→17:31)
[2019-06-03 07:00] LABS: Troponin I 0.011 ng/mL (< 0.028)
[2019-06-03] MEDS: Enoxaparin Sodium 40 MG/0.4 ML SYRINGE SC SCH (09:41)
[2019-06-03] MEDS: Pantoprazole 40 MG VIAL IVP SCH (09:42)
[2019-06-03] MEDS: Morphine 2 MG/ML SYRINGE SLOW IVP PRN (17:30)
--- NOTE | 2019-06-03 19:04 | CON ---
DATE OF CONSULTATION: 06/03/2019 REASON FOR CONSULTATION: Hematemesis. CONSULTING PROVIDER: Glenn Epps MD HISTORY OF PRESENT ILLNESS: The patient is a 64-year-old female with past medical history of hypertension, hyperlipidemia, chronic pain syndrome, tobacco abuse, and multiple sclerosis, who was initially admitted to the hospital for respiratory distress. Per chart review and with review of the patient and her , she states that she was in her usual state of health until yesterday when the patient was appeared to have "foam coming out of her mouth" with difficulty breathing. EMS was ultimately called for her respiratory distress and ultimately placed on BiPAP due to the patient's wishes not to be intubated and placed on mechanical ventilation. On evaluation by EMS and within the ER, the patient was noted to have altered mental status and significant hypoxia that was amenable to BiPAP. Over the next 12 to 24 hours, the patient responded well to more conservative management and today states that she was feeling better from a respiratory standpoint. However, per patient and per nursing staff, the patient did have mildly increased nausea today that resulted in 2 episodes of vomiting. The initial episode of vomiting consisted more of clear thick mucus/secretions whereas the second episode of vomiting consisted more of vomiting of darker brown/red colored fluid concerning for the presence of hematemesis. Upon further questioning the patient, she denies a history of acid reflux, but does spend the majority of her time lying down at home. She is currently not taking any medications for acid reflux as well. Otherwise, the patient denies any fevers, chills, melena, hematochezia, abdominal pain, dysphagia, or odynophagia. REVIEW OF SYSTEMS: A 10-category review of systems was obtained with all responses negative except for the pertinent positives as listed in HPI. PAST MEDICAL HISTORY: As per HPI. PAST SURGICAL HISTORY: Open reduction and internal fixation of a tibial plateau fracture. FAMILY HISTORY: Denies any GI malignancies. SOCIAL HISTORY: Denies any alcohol or illicit drug use. However, she smokes approximately 1 to 2 cigarettes a day with the help of loved ones. OUTPATIENT MEDICATIONS: Reviewed. ALLERGIES: IODINE AND SULFA. PHYSICAL EXAMINATION: VITAL SIGNS: Temperature 100, heart rate 110, blood pressure 170/87, respiratory rate 16, saturating 96% on room air. GENERAL: The patient was lying in bed, in no acute distress. Alert and oriented x4 although somewhat somnolent during the course of the exam. HEENT: Normocephalic, atraumatic. No scleral icterus noted. NECK: Supple. No JVD noted. CARDIOVASCULAR: Tachycardic rate, but regular rhythm. No discernible murmurs, gallops, or rubs. RESPIRATORY: Clear to auscultation bilaterally, but with poor inspiratory effort bilaterally. ABDOMEN: Normoactive bowel sounds. Soft, nontender, and nondistended. EXTREMITIES: No cyanosis, clubbing, or edema. LABORATORY DATA: CBC with a white blood cell count of 8.5, hemoglobin 13.7, hematocrit 41.7, platelets 116. Chemistry with a sodium of 136, potassium 4, chloride 100, CO2 of 23, BUN 28, creatinine 1.29, glucose 139, AST 12, ALT 8, alkaline phosphatase 120, and total bilirubin 0.4. IMAGING DATA: Chest x-ray was obtained on June 02, 2019, which showed stable increased linear interstitial densities with no evidence of pneumothorax, pleural fluid, focal consolidation, or alveolar edema. Brain CT was performed on June 02, 2019, which showed extensive periventricular, deep, and subcortical white matter hypodensities, stable when compared to prior imaging and consistent with multiple sclerosis and small vessel disease. There was no evidence of intracranial hemorrhage, midline shift, or mass effect. ASSESSMENT AND PLAN: The patient is a 64-year-old female with past medical history of hypertension, hyperlipidemia, chronic pain syndrome, tobacco abuse, and multiple sclerosis initially presenting with respiratory distress and hypoxemia requiring BiPAP administration, but now with nausea and vomiting of darker red colored fluid concerning for hematemesis. Hematemesis: The patient was initially evaluated in the [facility] ER for reasons related to respiratory distress and hypoxemia. She subsequently responded to BiPAP administration and at the time of my interview was on room air only with no difficulty with oxygenation. However, per nursing staff, the patient exhibited 2 episodes of vomiting earlier today with the initial episode consisting more of clear thick secretions, but the second episode of vomiting consisting more of dark red/brownish colored fluid. At this time, the etiology of the possible hematemesis is largely unknown, but the differential could include esophagitis/gastroesophageal reflux disease, gastritis, peptic ulcer disease, duodenitis, medication induced (administration of aspirin, steroids, and SSRIs could increase GI bleed risk), arteriovenous malformation, Dieulafoy lesion, Angeles-Almeida tear (less likely) and/or GI neoplasm. I spoke with the patient about further workup related to hematemesis and the risks and benefits of upper endoscopy. At this time, the patient would prefer to monitor the situation with trending of her H and H and monitoring her clinically for any further episodes of hematemesis rather than proceeding with invasive interventions. RECOMMENDATIONS: 1. Would continue to trend her H and H and transfuse as necessary to maintain an H and H of 7/. 2. Continue to monitor clinically for signs of active GI bleeding. 3. If the patient exhibits decreasing H and H and/or further episodes of hematemesis, I would then strongly recommend upper endoscopy for further evaluation. 4. Would place the patient on pantoprazole 40 mg IV b.i.d. 5. Would attempt to avoid/discontinue the use of any NSAIDs unless deemed absolutely necessary. 6. Would attempt to avoid any anticoagulation as well at least for the time being. We will continue to follow. Please call with any questions. Job ID: [id number]
--- NOTE | 2019-06-03 21:09 | CON ---
DATE OF CONSULTATION: 06/03/2019 HISTORY OF PRESENT ILLNESS: Ida Dias is an unfortunate woman, who has been dealing with multiple sclerosis for the last 8 years. She presented with altered mental status. She is noninvasively ventilated. Unfortunately, she is unable to even lift her arms off the bed. There is no way she could take a mask off if she were to vomit. She is seen by Gastroenterology for possible GI bleed. PAST MEDICAL HISTORY: Remarkable for; 1. Hypertension. 2. Lipid disorder. 3. Chronic pain. 4. History of tibial plateau fixation. MEDICATIONS: She is on; 1. Gabapentin 300 twice a day. 2. Lisinopril 20 b.i.d. 3. Aspirin 325 a day. 4. Vitamin D. 5. Paxil 20 a day. 6. Baclofen 20 t.i.d.. 7. Valium 2 b.i.d. 8. Lasix 20 a day. 9. Pravastatin. FAMILY HISTORY: Negative for lung disease in early age. ALLERGIES: REPORTED IODINE AND SULFA. SOCIAL HISTORY: She is a smoker. family lights cigarettes and holds as she can't lift her arms off the bed. She is a nondrinker. REVIEW OF SYSTEMS: Otherwise unremarkable. PHYSICAL EXAMINATION: VITAL SIGNS: She is afebrile, heart rate is 102, respiratory rate 16, oximetry is 99% on 2 L, blood pressure 140/78. HEAD AND NECK: Unremarkable. LUNGS: Clear. HEART: Regular rhythm. ABDOMEN: Soft and nontender. EXTREMITIES: Without clubbing, cyanosis, or edema. NEUROLOGIC: Nonfocal. LABORATORY DATA: White count 8.5, hemoglobin 13.7, platelets 116. Electrolytes are normal. BUN 28, creatinine 1.29. PH 7.31, CO2 of 52, PO2 of 89. IMPRESSION: Hypoventilation secondary to advanced multiple sclerosis. Discussed noninvasive ventilatory support. The pointed out that if she were to vomit at night, there is no way she could get the mask off. This is actually a good point and probably a relative contraindication to noninvasive ventilatory support when she sleeps. We should probably just discontinue the BiPAP since she is comfortable at this time and follow her clinically. Her prognosis obviously is quite poor. TIME SPENT: This is a 50-minute consult, 50% of the time spent on the unit coordinating care. Job ID: [id number] UDAY
[2019-06-03] MEDS: Gabapentin 300 MG CAP PO SCH (21:15)
[2019-06-03] MEDS: Lisinopril 20 MG TAB PO SCH (21:15)
[2019-06-04] MEDS: methylPREDNISolone Sod Succ 40 MG VIAL IVP SCH ×4 (00:03→17:40)
--- NOTE | 2019-06-04 09:19 | PRG ---
DATE OF SERVICE: 06/04/2019 SUBJECTIVE: Ida Dias had a good night. She has had no nausea, vomiting, or bright red blood per rectum. OBJECTIVE: VITAL SIGNS: She is afebrile. Heart rate is in the 90s, respiratory rate is in the teens, oximetry is 97% on 2 L, blood pressure is 172/96 this morning. LUNGS: Clear. HEART: Regular rhythm. ABDOMEN: Soft. IMPRESSION: 1. Advanced multiple sclerosis, essentially quadriplegic at this point. 2. Gastrointestinal blood loss. Her diet can probably be advanced today, but it will defer to Gastroenterology. She has not had a hemoglobin check in since the , so I have ordered this. We will follow the other physicians. Job ID: [id number]
[2019-06-04 09:32] LABS: Hemoglobin 12.4 g/dL (12.0-16.0)
[2019-06-04] MEDS: Lisinopril 20 MG TAB PO SCH ×2 (10:36→20:31)
[2019-06-04] MEDS: Gabapentin 300 MG CAP PO SCH ×2 (10:36→20:31)
[2019-06-04] MEDS: Enoxaparin Sodium 40 MG/0.4 ML SYRINGE SC SCH (10:37)
[2019-06-04] MEDS: Pantoprazole 40 MG VIAL IVP SCH (10:37)
[2019-06-04] MEDS: PARoxetine 20 MG TAB PO SCH (10:37)
[2019-06-04] MEDS: Aspirin 325 MG TAB PO SCH (10:37)
[2019-06-04] MEDS: Morphine 2 MG/ML SYRINGE SLOW IVP PRN ×2 (12:35→17:40)
--- NOTE | 2019-06-04 18:40 | PRG ---
DATE OF SERVICE: 06/04/2019 REASON FOR CONSULTATION: Hematemesis. SUBJECTIVE: Per nursing staff, there were no acute events or problems overnight. She had no further episodes of hematemesis and did have 2 bowel movements earlier today that were not considered melenic in nature. Currently, she states that she is feeling much better. She denies any nausea, vomiting, fevers, chills, melena, hematochezia, hematemesis, abdominal pain, dysphagia, or odynophagia. OBJECTIVE: VITAL SIGNS: Temperature 98.4, pulse 108, blood pressure 177/85, respiratory rate 20, saturating 96% on 2 L nasal cannula. GENERAL: The patient was lying in bed, in no acute distress. Alert and oriented x4. CARDIOVASCULAR: Tachycardic rate, but regular rhythm. RESPIRATORY: Clear to auscultation bilaterally. ABDOMEN: Normoactive bowel sounds. Soft, nontender, nondistended. EXTREMITIES: No cyanosis, clubbing, or edema. LABORATORY DATA: Hemoglobin and hematocrit with hemoglobin of 12.4, hematocrit 37.3. IMAGING DATA: No current GI imaging is available for review. ASSESSMENT AND PLAN: The patient is a 64-year-old female with past medical history of hypertension, hyperlipidemia, chronic pain syndrome, tobacco abuse, and multiple sclerosis with paraplegia, presenting with respiratory distress, hypoxemia, and vomiting of darker colored fluid concerning for hematemesis. 1. Hematemesis. a. The patient was initially admitted to the [facility] for respiratory distress and hypoxemia that responded to BiPAP administration. However, within 12 hours after her admission to the hospital, she experienced nausea and vomiting of dark/red colored fluid concerning for the presence of blood/hematemesis. Since that time, however, she has not had any further episodes of nausea or vomiting nor has she had any episodes of melena consistent with upper gastrointestinal bleed. Her hemoglobin and hematocrit did downtrend somewhat when compared to yesterday, but she has been receiving IV fluids with an element of hemodilution possible as well. When discussing possible intervention on her, she currently is reluctant to proceed with any upper endoscopy given her DNR/DNI status. RECOMMENDATIONS: 1. Would continue to trend her hemoglobin and hematocrit and transfuse as necessary to maintain a hemoglobin and hematocrit of 7/21. 2. Continue to monitor clinically for signs of active GI bleeding. 3. We will hold on upper endoscopy for now given patient preference. No further clinical evidence of GI bleeding and relative stabilization of her hemoglobin and hematocrit. 4. Would continue pantoprazole 40 mg IV b.i.d. 5. Would avoid any NSAIDs or anticoagulation for the time being. We will continue to follow peripherally. Please call with any changes in her status or additional questions. Job ID: [id number]
[2019-06-05] MEDS: methylPREDNISolone Sod Succ 40 MG VIAL IVP SCH ×4 (00:03→18:47)
[2019-06-05 03:46] LABS: Hemoglobin 12.3 g/dL (12.0-16.0)
[2019-06-05 04:32] LABS: Anion Gap 16 mmol/L (10-20); BUN (Urea Nitrogen) 23 mg/dL (9.8-20.1); Calc. Creatinine Clearance 101 mL/min (70-130); Calcium 9.9 mg/dL (7.8-10.44); Carbon Dioxide 22 mmol/L (23-31); Chloride 99 mmol/L (98-107); Estimated GFR-MDRD Greater than 90; Glucose 111 mg/dL (80-115); Potassium 4.3 mmol/L (3.5-5.1); Sodium 133 mmol/L (136-145)
[2019-06-05] MEDS: Gabapentin 300 MG CAP PO SCH ×2 (10:37→20:25)
[2019-06-05] MEDS: PARoxetine 20 MG TAB PO SCH (10:37)
[2019-06-05] MEDS: Lisinopril 20 MG TAB PO SCH ×2 (10:38→20:25)
[2019-06-05] MEDS: Pantoprazole 40 MG VIAL IVP SCH (10:40)
[2019-06-05] MEDS: Enoxaparin Sodium 40 MG/0.4 ML SYRINGE SC SCH (10:40)
[2019-06-05] MEDS: Aspirin 325 MG TAB PO SCH (10:41)
[2019-06-05] MEDS ORDERED: Amlodipine 5 MG TAB PO SCH (15:45)
[2019-06-05] MEDS ORDERED: traMADol HCl 50 MG TAB PO SCH (16:15)
[2019-06-05] MEDS: traMADol HCl 50 MG TAB PO SCH (20:23)
[2019-06-06] MEDS: methylPREDNISolone Sod Succ 40 MG VIAL IVP SCH ×5 (00:09→23:16)
[2019-06-06] MEDS: Aspirin 325 MG TAB PO SCH (08:53)
[2019-06-06] MEDS: Amlodipine 5 MG TAB PO SCH (08:54)
[2019-06-06] MEDS: traMADol HCl 50 MG TAB PO SCH ×3 (08:54→20:47)
[2019-06-06] MEDS: Gabapentin 300 MG CAP PO SCH ×2 (08:54→20:46)
[2019-06-06] MEDS: Pantoprazole 40 MG VIAL IVP SCH (08:55)
[2019-06-06] MEDS: Lisinopril 20 MG TAB PO SCH ×2 (08:55→20:45)
[2019-06-06] MEDS: PARoxetine 20 MG TAB PO SCH (08:55)
[2019-06-06] MEDS: Enoxaparin Sodium 40 MG/0.4 ML SYRINGE SC SCH (08:55)
[2019-06-06] MEDS: Metoprolol Tartrate 25 MG TAB PO SCH (20:47)
--- NOTE | 2019-06-07 00:59 | EKG ---
Test Reason : Blood Pressure : / mmHG Vent. Rate : 084 BPM Atrial Rate : 084 BPM P-R Int : 172 ms QRS Dur : 090 ms QT Int : 386 ms P-R-T Axes : 079 087 064 degrees QTc Int : 456 ms Normal sinus rhythm Normal ECG Confirmed by ROSEANNE CASTILLO DO ([id number]), manager editorial JOBY DANIELSON ([id number] on 06/07/2019 12:59:25 AM Referred By: Confirmed By:ROSEANNE CASTILLO DO
[2019-06-07] MEDS: methylPREDNISolone Sod Succ 40 MG VIAL IVP SCH ×2 (05:57→12:21)
[2019-06-07] MEDS: Metoprolol Tartrate 25 MG TAB PO SCH (10:31)
[2019-06-07] MEDS: Amlodipine 5 MG TAB PO SCH ×2 (10:31→21:26)
[2019-06-07] MEDS: Pantoprazole 40 MG VIAL IVP SCH (10:31)
[2019-06-07] MEDS: Aspirin 325 MG TAB PO SCH (10:31)
[2019-06-07] MEDS: traMADol HCl 50 MG TAB PO SCH ×3 (10:32→21:27)
[2019-06-07] MEDS: Enoxaparin Sodium 40 MG/0.4 ML SYRINGE SC SCH (10:32)
[2019-06-07] MEDS: Gabapentin 300 MG CAP PO SCH ×2 (10:32→21:26)
[2019-06-07] MEDS: Lisinopril 20 MG TAB PO SCH ×2 (10:32→21:26)
[2019-06-07] MEDS: PARoxetine 20 MG TAB PO SCH (10:32)
[2019-06-07] MEDS: Baclofen 10 MG TAB PO SCH (21:26)
[2019-06-07] MEDS: Diazepam 2 MG TAB PO SCH (21:26)
[2019-06-07] MEDS: Metoprolol Tartrate 50 MG TAB PO SCH (21:28)
[2019-06-08 05:59] LABS: #Lymphocytes 3.4 thou/uL (1.20-3.40); #Monocytes 0.8 thou/uL (0.11-0.59); #Neutrophils 4.2 thou/uL (1.40-6.50); %Basophils 0.1 % (0.0-1.0); %Eosinophils 0.5 % (0.0-10.0); %Lymphocytes 40.3 % (21.0-51.0); %Monocytes 9.9 % (0.0-10.0); %Neutrophils 49.3 % (42.0-75.0); Hemoglobin 14.5 g/dL (12.0-16.0); Mean Corpuscular HGB CONC 32.3 g/dL (32.0-36.0); Mean Corpuscular Hemoglobin 33.9 pg (27.0-31.0); Mean Platelet Volume 7.2 fL (7.4-10.4); Platelet Count 276 thou/uL (130-400); Red Blood Cell (RBC) Count 4.28 mill/uL (4.20-5.40); White Blood Cell (WBC) Count 8.5 thou/uL (4.8-10.8)
[2019-06-08 06:14] LABS: Anion Gap 13 mmol/L (10-20); BUN (Urea Nitrogen) 26 mg/dL (9.8-20.1); Calc. Creatinine Clearance 107 mL/min (70-130); Calcium 9.4 mg/dL (7.8-10.44); Carbon Dioxide 25 mmol/L (23-31); Chloride 101 mmol/L (98-107); Estimated GFR-MDRD Greater than 90; Glucose 83 mg/dL (80-115); Potassium 3.7 mmol/L (3.5-5.1); Sodium 135 mmol/L (136-145)
[2019-06-08 06:59] LABS: Bacteria/HPF None Seen HPF (None Seen); Bilirubin Negative (Negative); Blood, Urine 1+ (Negative); Clarity Clear (Clear); Glucose, Urine (Dipstick) Normal (Negative); Leukocyte 25 Leu/uL (Negative); Nitrite Negative (Negative); Protein, Urine (Dipstick) 30 mg/dL (Neg-Trace); Squamous Epithelial 0-3 HPF (0-3); Urobilinogen Normal mg/dL (Less than 2)
[2019-06-08 07:01] LABS: Urine Culture Reflex Yes Yes
--- NOTE | 2019-06-08 09:18 | PRG ---
DATE OF SERVICE: 06/05/2019 SUBJECTIVE: Ida Dias says she is feeling good. She wants to go home. OBJECTIVE: VITAL SIGNS: Heart rate 103, blood pressure 172/96, respiratory rate 21, oximetry is 96% on room air. LUNGS: Clear. HEART: Regular rhythm. ABDOMEN: Soft. LABORATORY DATA: Hemoglobin stable 12.4 g yesterday and 12.3 g today. IMPRESSION AND PLAN: 1. Advanced multiple cirrhosis. She gets excellent care from her family at home. 2. ? Gastrointestinal bleed, stable H and H. I think patient is ready for discharge to home, if Gastroenterology agrees. Job ID: [id number] MTDD
[2019-06-08] MEDS: Lisinopril 20 MG TAB PO SCH ×2 (09:47→21:23)
[2019-06-08] MEDS: Polyethylene Glycol 3350 17 GM Packet PO SCH (09:48)
[2019-06-08] MEDS: Gabapentin 300 MG CAP PO SCH ×2 (09:48→21:23)
[2019-06-08] MEDS: Aspirin 325 MG TAB PO SCH (09:48)
[2019-06-08] MEDS: Baclofen 10 MG TAB PO SCH ×3 (09:48→21:23)
[2019-06-08] MEDS: Amlodipine 5 MG TAB PO SCH ×2 (09:48→21:22)
[2019-06-08] MEDS: PARoxetine 20 MG TAB PO SCH (09:48)
[2019-06-08] MEDS: Metoprolol Tartrate 50 MG TAB PO SCH ×2 (09:49→21:22)
[2019-06-08] MEDS: predniSONE 20 MG TAB PO SCH (09:49)
[2019-06-08] MEDS: traMADol HCl 50 MG TAB PO SCH ×3 (09:49→21:23)
[2019-06-08] MEDS: Diazepam 2 MG TAB PO SCH ×2 (09:49→21:22)
[2019-06-08] MEDS: Enoxaparin Sodium 40 MG/0.4 ML SYRINGE SC SCH (09:50)
--- NOTE | 2019-06-08 15:27 | PDOC.PALCO ---
Palliative Care Consult - Consult Details Requesting Physician: Dr Kim Reason for Consult: symptom management Family Members Present: None - Pertinent HPI 64 year old female with known progressive Multiple Sclerosis who is cared for in a private home with [facility] and her family. Patient is bedbound primarily, however has a wheelchair accessible van and is able to make her Dr appointment. Family report that prior to hospitalization she has had increase in weakness and sleep. reports that he returned home from work 06/03 and found his sleeping, later he noted that she had "foam" coming from her mouth and was not responsive. EMS called, patient a DNAR so Bipap was initiated and transport to hospital. Evaluation identified respiratory failure and patient was admitted for further evaluation. - Pertinent PMH Multiple Sclerosis, Hypertension, HDL, Chronic pain related to MS, Depression - Social History Smoking Status: Current some day smoker Smoking: cigarettes Alcohol Use: none Drug Use History: none Living Situation: other (Lives in a private home but dependent on family for all ADL secondary to MS) - Allergies Allergies/Adverse Reactions: Allergies Allergy/AdvReac Type Severity Reaction Status Date / Time codeine Allergy Verified 02/26/18 14:16 iodine Allergy Verified 02/26/18 14:16 shellfish derived Allergy Verified 02/26/18 14:16 Sulfa (Sulfonamide Allergy Verified 02/26/18 14:16 Antibiotics) - Subjective Mild confusion. Awake, alert. unable to move extremities secondary to progressive MS. - ROS Constitutional: weakness Eyes: other (Decrease in peripheral vision) ENT: other (Intermittant difficulity swallowing) Respiratory: shortness of breath Gastrointestinal: bowel incontinence Musculoskeletal: arthritis/arthralgias Neurological: numbness Psychological: memory changes - Objective Vital Signs: Vital Signs - Most Recent Temp Pulse Resp BP Pulse Ox 98.2 F 75 18 132/77 92 L 06/08/19 10:48 06/08/19 10:48 06/08/19 10:48 06/08/19 14:17 06/08/19 10:48 Palliative Performance Scale: 30 - Physical Exam Constitutional: ill appearing HEENT: moist MMs, sclera anicteric Respiratory: clear to auscultation bilateral, diminished lung sound Cardiovascular: RRR, diminished peripheral pulses Gastrointestinal: non-tender, positive bowel sounds Musculoskeletal: diffuse muscle atrophy Deviation from normal: Contrctures to uper extremities Deviation from normal: Unable to move lower, minimal to right upp Skin: cap refill <2 seconds, fragile Deviation from normal: intermittant episode of hallucination - Problem List (1) Dysphagia causing pulmonary aspiration with swallowing Code(s): R13.19 - OTHER DYSPHAGIA Status: Acute (2) Multiple sclerosis Code(s): G35 - MULTIPLE SCLEROSIS Status: Acute (3) Pain Code(s): R52 - PAIN, UNSPECIFIED Status: Acute (4) Palliative care encounter Code(s): Z51.5 - ENCOUNTER FOR PALLIATIVE CARE Status: Acute (5) Physical debility Code(s): R53.81 - OTHER MALAISE Status: Acute - Plan/Recommendations Plan: Introduced palliative care to patient. Discussed life review and diagnosis of MS. Initially seen in [place] at [facility] and was followed there until she found it too taxing to commute to the [facility], since that time she has been followed by Dr Edward. Symptoms managed with medication. Patient confirmed DNAR status. In discussing Multiple Sclerosis patient was asked if she understood disease trajectory, she confirmed she did. Introduced consideration of re-establishing Goal of Care with consideration to continued decline of MS. Patient confirmed that he granddaughter and home health has discussed hospice with her. Will attempt to establish a family meeting to review progression of Multiple Sclerosis and revisit Goal of Care Suggest increasing antidepressant and steroid for exacerbation of MS. [60] minutes spent on this encounter with >50% of the time in counseling and coordination of care. Thank you for this very appropriate consult.
[2019-06-09] MEDS: Baclofen 10 MG TAB PO SCH ×5 (09:26→22:29)
[2019-06-09] MEDS: Aspirin 325 MG TAB PO SCH (09:26)
[2019-06-09] MEDS: Amlodipine 5 MG TAB PO SCH (09:27)
[2019-06-09] MEDS: PARoxetine 20 MG TAB PO SCH (09:27)
[2019-06-09] MEDS: Diazepam 2 MG TAB PO SCH (09:28)
[2019-06-09] MEDS: predniSONE 20 MG TAB PO SCH (09:28)
[2019-06-09] MEDS: Lisinopril 20 MG TAB PO SCH ×2 (09:28→20:40)
[2019-06-09] MEDS: Metoprolol Tartrate 50 MG TAB PO SCH (09:29)
[2019-06-09] MEDS: Gabapentin 300 MG CAP PO SCH ×4 (09:29→22:28)
[2019-06-09] MEDS: Polyethylene Glycol 3350 17 GM Packet PO SCH (09:30)
[2019-06-09] MEDS: Enoxaparin Sodium 40 MG/0.4 ML SYRINGE SC SCH (09:30)
[2019-06-09] MEDS: traMADol HCl 50 MG TAB PO SCH ×3 (09:30→14:56)
[2019-06-09] MEDS ORDERED: traMADol HCl 50 MG TAB PO PRN (18:18)
[2019-06-09] MEDS: Metoprolol Tartrate 25 MG TAB PO SCH (20:40)
[2019-06-09] MEDS: Dextrose 5 %-0.45 % NaCl 1,000 ML IV SCH (22:40)
[2019-06-10] MEDS: Baclofen 10 MG TAB PO SCH (09:02)
[2019-06-10] MEDS: Aspirin 325 MG TAB PO SCH (09:02)
[2019-06-10] MEDS: Lisinopril 20 MG TAB PO SCH (09:03)
[2019-06-10] MEDS: Enoxaparin Sodium 40 MG/0.4 ML SYRINGE SC SCH (09:03)
[2019-06-10] MEDS: Gabapentin 300 MG CAP PO SCH (09:03)
[2019-06-10] MEDS: Metoprolol Tartrate 25 MG TAB PO SCH (09:08)
[2019-06-10] MEDS: predniSONE 20 MG TAB PO SCH (09:11)
[2019-06-10] MEDS: Polyethylene Glycol 3350 17 GM Packet PO SCH (09:11)
[2019-06-10] MEDS: PARoxetine 20 MG TAB PO SCH (09:11)
--- NOTE | 2019-06-10 10:48 | PDOC.PALPN ---
Palliative Progress Note - Subjective Awake, alert, oriented x 3. Granddaughters Madison and Olga at bedside with patient . Scott Alexissergio Richard (who patient has for home health also present at family request.) - Objective Vital Signs: Vital Signs - Most Recent Temp Pulse Resp BP Pulse Ox 97.4 F L 50 L 20 114/72 97 06/10/19 07:35 06/10/19 07:35 06/10/19 07:35 06/10/19 09:03 06/10/19 08:55 - Physical Exam Constitutional: ill appearing HEENT: moist MMs, sclera anicteric Deviation from normal: Decreased peripheral vision Respiratory: clear to auscultation bilateral, no wheezing, diminished lung sound Cardiovascular: RRR Gastrointestinal: soft, non-tender, positive bowel sounds, incontinent Musculoskeletal: diffuse muscle atrophy Lymphatic: no nodes Skin: cap refill <2 seconds Psychiatric: A&O x 3, normal affect - Assessment (1) Palliative care encounter Code(s): Z51.5 - ENCOUNTER FOR PALLIATIVE CARE Status: Acute (2) Multiple sclerosis Code(s): G35 - MULTIPLE SCLEROSIS Status: Acute (3) Physical debility Code(s): R53.81 - OTHER MALAISE Status: Acute (4) Dysphagia causing pulmonary aspiration with swallowing Code(s): R13.19 - OTHER DYSPHAGIA Status: Acute - Plan Plan: Met with Family and patient. Transitioning to hospice. Discussed disease trajectory with patient and family, oppertunity for them to ask questions. Reviewed options to continue to manage symptoms with family and hospice suggesting O2 at home, patient agreeable to wear "BiPap" mask as needed, steroid for exacerbation of MS, consider increasing antidepressant. Also discussed measures to prevent aspiration related to fluctuating dysphagia. Dr Mich villegas, CM notified. [60] minutes spent on this encounter with >50% of the time in counseling and coordination of care. - ROS Constitutional: weakness Eyes: other (Decrease in peripheral vision at times) ENT: difficulty swallowing (Intermittant) Respiratory: other (Denies congestion or current shortness of breath) Cardiology: other (Negative for Palpitations of chest discomfort) Gastrointestinal: other (negative for vomiting, constipation, diarrhea) Musculoskeletal: arthritis/arthralgias Neurological: numbness, tremor, weakness Psychological: memory changes
[2019-06-10] MEDS: Dextrose 5 %-0.45 % NaCl 1,000 ML IV SCH (13:11)
[2019-06-10 15:15] VITALS: BP 112/68; TEMP 97.9
[2019-06-10] MEDS ORDERED: Baclofen 10 MG TAB PO SCH (21:00)
[2019-06-11] MEDS ORDERED: Lisinopril 20 MG TAB PO SCH (09:00)
[2019-06-11] MEDS ORDERED: PARoxetine 20 MG TAB PO SCH (09:00)
[2019-06-11] MEDS ORDERED: Polyethylene Glycol 3350 17 GM Packet PO SCH (09:00)
[2019-06-11] MEDS ORDERED: Aspirin 325 MG TAB PO SCH (09:00)
== END 2019-06-10 17:57 | disposition home or self-care (01) | DRG 189 ==
LOC: ERS 20:31 → IMCU/EMU 06-03 01:28 → SURG B 06-06 22:42
PROVIDERS: ADMIT Internal Medicine; ATTEND Internal Medicine
PROC: 5A09357 Assistance with Respiratory Ventilation, Less than 24 Consecutive Hours, Continuous Positive Airway Pressure (ICD-10-PCS; principal; 2019-06-03)
DX: J96.00 Acute respiratory failure, unspecified whether with hypoxia or hypercapnia (principal); G93.41 Metabolic encephalopathy; G82.50 Quadriplegia, unspecified; K92.2 Gastrointestinal hemorrhage, unspecified; G35 Multiple sclerosis; I10 Essential (primary) hypertension; Z66 Do not resuscitate; E78.5 Hyperlipidemia, unspecified; G89.29 Other chronic pain; Z88.2 Allergy status to sulfonamides; Z88.8 Allergy status to other drugs, medicaments and biological substances; Z74.01 Bed confinement status; Z87.440 Personal history of urinary (tract) infections; Z88.5 Allergy status to narcotic agent; Z91.013 Allergy to seafood
CPT/HCPCS: 36415; 70450; 71045; 80048; 80053; 81001; 82550; 82805; 83880; 84484; 85014; 85018; 85025; 87086; 93005; 94640; 94660; 96365; 96372; 96375; C9113; J1650; J1956; J2270; J2310; J2920; J2930; J7512; J7620